=== PATIENT | female | born 1965 | race Caucasian/White ===

== ENCOUNTER 2019-10-09 08:49 | Day surgery (SDC) | payer BC ==
[2019-10-08 17:04] LABS: BASOPHILS % (AUTO) 0.6 % (0.0-2.0); EOSINOPHILS # (AUTO) 0.1 K/uL (0.0-0.4); EOSINOPHILS % (AUTO) 1.6 % (0.0-4.0); HEMATOCRIT 39.9 % (36-48); HEMOGLOBIN 13.6 g/dL (12.0-16.0); LYMPHOCYTES # (AUTO) 2.1 K/uL (1.0-5.5); LYMPHOCYTES % (AUTO) 29.3 % (20.5-51.5); MEAN CORPUSCULAR HEMOGLOBIN 31 pg (27-31); MEAN CORPUSCULAR HGB CONC 34 % (32-36); MEAN CORPUSCULAR VOLUME 90 fL (79.0-98.0); MONOCYTES # (AUTO) 0.6 K/uL (0.0-1.0); MONOCYTES % (AUTO) 8.5 % (1.7-9.3); NEUTROPHILS # (AUTO) 4.3 K/uL (1.8-7.7); PLATELET COUNT (AUTO) 267 K/uL (130-430); RED BLOOD CELL COUNT(AUTO) 4.43 MIL/uL (4.2-6.2); WHITE BLOOD COUNT (AUTO) 7.2 K/uL (4.8-10.8)
[2019-10-08 17:24] LABS: CALCIUM 8.3 mg/dL (8.4-11.0); CREATININE 0.78 mg/dL (0.55-1.30); POTASSIUM 3.8 mmol/L (3.5-5.1)
[2019-10-08 18:25] LABS: BILIRUBIN,URINE NEGATIVE (NEGATIVE); BLOOD, URINE NEGATIVE (NEGATIVE); CLARITY/URINE CLEAR (CLEAR); COLOR,URINE YELLOW (YELLOW); GLUCOSE,URINE NEGATIVE (NEGATIVE); KETONES,URINE NEGATIVE (NEGATIVE); LEUKOCYTE ESTERASE ,URINE NEGATIVE (NEGATIVE); NITRITE, URINE NEGATIVE (NEGATIVE); PH,URINE 5.5 (5.0-8.0); PROTEIN URINE NEGATIVE (NEGATIVE); UROBILINOGEN,URINE 0.2 (0.2-1.0)
[2019-10-08 19:36] LABS: PROTHROMBIN TIME 9.6 SECS (9.5-12.5)
[~2019-10-09] VITALS: Ht 167.6 cm; Wt 64.4 kg
[2019-10-09] MEDS ORDERED: ONDANSETRON HCL 4 MG/2 ML VIAL IVP PRN (10:15)
[2019-10-09] MEDS ORDERED: fentaNYL CITRATE/PF 100 MCG/2 ML AMP IVP PRN ×2 (10:15)
[2019-10-09] MEDS ORDERED: KETOROLAC TROMETHAMINE 30 MG VIAL IVP PRN (10:15)
[2019-10-09] MEDS ORDERED: VANCOMYCIN HCL 1000 MG/VIAL IV ONE (10:36)
[2019-10-09] MEDS ORDERED: NEOSTIGMINE METHYLSULFATE 1 MG/ML, 10 ML VIAL IVP ONE (10:36)
[2019-10-09] MEDS ORDERED: LR 1,000 ML IV.SOLN IV ONE (10:36)
[2019-10-09] MEDS ORDERED: SEVOFLURANE 15 MIN GAS INH ONE (10:36)
[2019-10-09] MEDS ORDERED: MIDAZOLAM HCL 5 MG/5 ML VIAL IVP ONE (10:36)
[2019-10-09 12:42] VITALS: BP_SYST 108
== END 2019-10-09 12:30 | disposition home or self-care (01) ==
LOC: SMU 08:49 → SDS 08:49
PROVIDERS: ATTEND Orthopaedic Surgery
DX: L08.89 Other specified local infections of the skin and subcutaneous tissue (principal); L97.529 Non-pressure chronic ulcer of other part of left foot with unspecified severity; Z79.01 Long term (current) use of anticoagulants
CPT/HCPCS: 11421; 36415; 71046; 80048; 81003; 85025; 85610; 85730; 87070 ×2; 87075; 88304; 93005; J2250; J2710; J3370; J7120

== ENCOUNTER 2019-11-14 10:00 | Day surgery (SDC) | payer BC ==
[~2019-11-14] VITALS: Ht 167.6 cm; Wt 64.4 kg
[2019-11-14] MEDS ORDERED: POLYMYXIN 500,000/BACIT.10,000 UNITS in NS IRR 1 L IR ONE (11:16)
[2019-11-14] MEDS ORDERED: SEVOFLURANE 15 MIN GAS INH ONE (11:35)
[2019-11-14] MEDS ORDERED: MEPERIDINE HCL/PF 50 MG/ML AMP ONE (11:35)
[2019-11-14] MEDS ORDERED: LR 1,000 ML IV.SOLN IV ONE (11:35)
[2019-11-14] MEDS ORDERED: KETOROLAC TROMETHAMINE 30 MG VIAL ONE (11:35)
[2019-11-14] MEDS ORDERED: BUPIVACAINE /EPINEPHRINE/PF 0.5% 30 ML VIAL INJ ONE (11:35)
[2019-11-14] MEDS ORDERED: MIDAZOLAM HCL 5 MG/ML VIAL (VERSED) IV ONE (11:35)
[2019-11-14] MEDS ORDERED: PROPOFOL 200MG/ 20ML VIAL (DIPRIVAN) IV ONE (11:35)
[2019-11-14] MEDS ORDERED: fentaNYL CITRATE/PF 100 MCG/2 ML AMP ONE (11:35)
[2019-11-14] MEDS ORDERED: DEXAMETHASONE SOD PHOSPHATE 4 MG/ML VIAL ONE (11:35)
[2019-11-14] MEDS ORDERED: ONDANSETRON HCL 4 MG/2 ML VIAL ONE (11:35)
[2019-11-14] MEDS ORDERED: LR 1,000 ML IV SCH (11:38)
[2019-11-14] MEDS ORDERED: KETOROLAC TROMETHAMINE 30 MG VIAL IVP PRN (11:45)
[2019-11-14] MEDS ORDERED: ONDANSETRON HCL 4 MG/2 ML VIAL IVP PRN (11:45)
[2019-11-14] MEDS ORDERED: MEPERIDINE HCL/PF 25 MG/ML DISP.SYRIN IVP PRN (11:45)
[2019-11-14] MEDS ORDERED: HYDROmorphone 1 MG INJ. 1 MG/ML AMPUL IVP PRN (11:45)
[2019-11-14 12:56] VITALS: BP_SYST 119
== END 2019-11-14 14:45 | disposition still patient (30) ==
LOC: SDS 10:00 → UNDOFXSDCACCOM 10:00 → SMU 10:03 → SDS 14:45 → SMU 14:45
PROVIDERS: ATTEND Orthopaedic Surgery
DX: L08.89 Other specified local infections of the skin and subcutaneous tissue (principal); E11.9 Type 2 diabetes mellitus without complications; I51.9 Heart disease, unspecified
CPT/HCPCS: 11043; 87070 ×2; 87075; J1100; J1885; J2175; J2250; J2405; J2704; J3010; J3490; J7120

== ENCOUNTER 2020-10-07 12:18 | Outpatient (CLI) | payer BC | END 2020-10-07 20:18 | disposition home or self-care (01) | LOC: SRD 12:18 | PROVIDERS: ATTEND Psychiatry & Neurology Neurology | DX: R05 Cough (principal) | CPT/HCPCS: 71046-TC ==